=== PATIENT | male | born 1945 | race Caucasian/White ===

== ENCOUNTER → 2016-07-22 | Outpatient (CLI) | payer OTHER ==
[~2016-07-22] MED LIST: ACET-1256 PO; LISI40TA PO; LXT PO
--- NOTE | 2016-07-22 13:32 | DIAGNOSTIC IMAGING REPORT ---
LUMBAR SPINE 5 VIEWS HISTORY: Low back pain. COMPARISON: None. FINDINGS: There is no fracture. No subluxation. Moderate to severe disc space narrowing at L5-S1. Remaining disc spaces are preserved. Small endplate osteophytes seen throughout the majority of the lumbar spine. The sacrum is intact. Levoscoliosis of the lumbar spine may be positional. Mild facet degenerative changes within the lower lumbar spine. IMPRESSION: No fracture or subluxation within the lumbar spine. Moderate to severe disc space narrowing at L5-S1. Electronically signed by: Yair Mendez M.D. 07/22/2016 1:31 PM Dictated Date/Time: 07/22/2016 1:28 PM
== END | disposition home or self-care (01) ==
LOC: C.RAD 12:41
PROVIDERS: ATTEND Family Medicine
DX: M48.07 Spinal stenosis, lumbosacral region (principal)

== ENCOUNTER 2016-10-02 12:52 | Emergency (ER) | payer OTHER ==
[~2016-10-02] VITALS: Ht 182.9 cm; Wt 91.9 kg
[2016-10-02 12:57] VITALS: TEMP 36.7; Ht 182.9 cm; Wt 91.9 kg
[2016-10-02] MEDS ORDERED: LISI40TA PO (14:18)
[2016-10-02] MEDS ORDERED: ACET-1256 PO (14:36)
[2016-10-02] MEDS ORDERED: LXT PO (14:36)
[2016-10-02] MEDS ORDERED: MoRPHine SULFATE 4 MG/ML 1 ML CARP\\VIAL IV STA (14:44)
--- NOTE | 2016-10-02 14:46 | EMERGENCY ROOM VISIT NOTE ---
History Report prepared by Leonard: Linus Goncalves Under the Supervision of: Dr. Nina Roberts D.O. First contact with patient: 14:20 Chief Complaint: ABDOMINAL PAIN Stated Complaint: SEVERE RIGHT SIDE PAIN;BACK PAIN;HEAD PAIN Nursing Triage Summary: Pt presents with right sided abd pain x 2 mos. Constipation. Last BM was Mon morning. Denies n/v. History of Present Illness The patient is a 70 year old male who presents to the Emergency Room with complaints of worsening right-sided abdominal pain that started 2 weeks ago. The patient has not gotten out of bed much the last week or so due to his pain. The patient's family states that the patient had similar pain earlier this year , and was seen here for an evaluation of his gallbladder. The patient says the pain is intermittent, and does not occur everyday. Today, he says the pain is much worse. He states that the only thing that worsens the pain is movement. Nothing makes the pain better. He also notes that his abdomen feels full. Per the patient's family, the patient has had constipation issues for the past 2 weeks, and the onset of constipation occurred around the same time as the onset of the abdominal pain. The patient has to strain to have a bowel movement, and he has not had a bowel movement for 3 days. He has not talked to his primary care physician about his current symptoms. The patient denies any recent changes in his medications or diet. He also denies any fevers, recent illness, hematochezia, urinary symptoms, or leg swelling. The patient takes Lisinopril for hypertension. The patient's family notes that the patient has had chronic back pain, but injured it again in November. The patient has had back pain intermittently since then, but the pain is worsening every time it comes back. He has only had an x-ray of his back. The patient smokes cigarettes and drinks alcohol daily. His last colonoscopy was 6 years ago. The x-ray of the patient's back showed moderate to severe disk space narrowing at L5-S1. He had a HIDA scan in February of last year which was normal, and he had an ultrasound in February of last year which showed a small cyst and mild fatty liver. Source of History: patient, family Onset: 2 weeks ago Position: abdomen (right-sided) Symptom Intensity: has not gotten out of bed much the past week Timing: worsening Modifying Factors (Worsening): movement Associated Symptoms: No fevers, No hematochezia, No urinary symptoms Note: Associated symptoms: Constipation. Abdomen feels full. Denies recent illness, leg swelling. Review of Systems See HPI for pertinent positives & negatives. A total of 10 systems reviewed and were otherwise negative. Past Medical & Surgical Medical Problems: (1) Back pain (2) HTN (hypertension) Family History FHx: cancer Heart disease Hypertension Social History Smoking Status: Current Every Day Smoker Alcohol Use: occasionally Marital Status: Housing Status: lives with family Current/Historical Medications Scheduled Lisinopril (Zestril), 40 MG PO DAILY Scheduled PRN Acetaminophen (Tylenol), 500 MG PO UD PRN for Pain Laxative (Laxative), 1 DOSE PO UD PRN for Constipation Allergies Coded Allergies: No Known Allergies (Unverified , 10/02/16) Physical Exam Vital Signs Date Time Temp Pulse Resp B/P Pulse Ox O2 Delivery O2 Flow Rate FiO2 10/02/16 18:00 69 17 137/67 94 Room Air 10/02/16 15:58 70 126/73 98 Room Air 10/02/16 15:35 67 16 126/73 96 Room Air 10/02/16 12:57 36.7 70 16 101/59 97 Room Air Physical Exam GENERAL: alert, well appearing, well nourished, no distress, non-toxic EYE EXAM: normal conjunctiva, PERRL and EOM's grossly intact OROPHARYNX: no exudate, no erythema, lips, buccal mucosa, and tongue normal and mucous membranes are mildly dry NECK: supple, no nuchal rigidity, no adenopathy, non-tender LUNGS: Lung sounds diminished, no wheezing, no rhonchi, no rales. HEART: no murmurs, S1 normal and S2 normal ABDOMEN: Mild tenderness in mid-lateral abdomen, no pulsatile mass, no rebound or guarding. Mild hepatomegaly. Dull to percussion. BACK: Back is symmetrical on inspection and there is no deformity, no midline tenderness, no CVA tenderness. SKIN: no rashes and no bruising UPPER EXTREMITIES: upper extremities are grossly normal. LOWER EXTREMITIES: No pitting edema. NEURO EXAM: Normal sensorium, cranial nerves II-XII grossly intact, normal speech, no gross weakness of arms, no gross weakness of legs. No drift. Finger to nose intact. Gross sensation intact. Medical Decision & Procedures ER Provider Diagnostic Interpretation: CT:Per my review, radiologist interpretation. ABDOMEN AND PELVIS CT WITHOUT CONTRAST CT DOSE: 1047.94 mGycm HISTORY: Right-sided abdominal pain. TECHNIQUE: Multiaxial CT images of the abdomen and pelvis were performed without contrast. COMPARISON STUDY: None. FINDINGS: The lung bases are clear. There is a 13 mm hypodense lesion within the left hepatic lobe. This is incompletely characterize on this noncontrast study. The unenhanced gallbladder, pancreas, and spleen are unremarkable. There are few subcentimeter adrenal gland nodules. Mild bilateral perinephric edema is likely chronic. No hydronephrosis. No renal stones. No retroperitoneal lymphadenopathy. Bladder is distended and there is mild wall thickening. Prostate gland is normal in size. No evidence for bowel obstruction. A few colonic diverticula. There is extensive inflammatory change adjacent to the cecum. A portion of the tip the appendix is identified and is distended up to 1.3 cm. There are few scattered appendicoliths adjacent to the cecum. There is a 4.4 cm gas and fluid collection obscuring the majority of the appendix. Therefore, these findings are consistent with perforated acute appendicitis with associated abscess formation. IMPRESSION: 1. Above findings consistent with perforated acute appendicitis with a 4.4 cm periappendiceal abscess. There are few scattered appendicoliths within and surrounding the abscess collection. 2. Distended bladder with mild wall thickening. Electronically signed by: Yair Mendez M.D. 10/02/2016 4:14 PM Dictated Date/Time: 10/02/2016 4:00 PM Laboratory Results 10/02/16 14:55 Red Blood Count 4.65, Mean Corpuscular Volume 88.0, Mean Corpuscular Hemoglobin 29.2, Mean Corpuscular Hemoglobin Concent 33.3, Mean Platelet Volume 9.7, Neutrophils (%) (Auto) 74.5, Lymphocytes (%) (Auto) 12.4, Monocytes (%) (Auto) 11.1, Eosinophils (%) (Auto) 1.2, Basophils (%) (Auto) 0.3, Neutrophils # (Auto ) 8.39, Lymphocytes # (Auto) 1.39, Monocytes # (Auto) 1.25, Eosinophils # (Auto ) 0.13, Basophils # (Auto) 0.03 10/02/16 14:55 Test 10/02/16 14:55 10/02/16 15:10 10/02/16 15:50 White Blood Count 11.25 K/uL (4.8-10.8) Red Blood Count 4.65 M/uL (4.7-6.1) Hemoglobin 13.6 g/dL (14.0-18.0) Hematocrit 40.9 % (42-52) Mean Corpuscular Volume 88.0 fL (80-100) Mean Corpuscular Hemoglobin 29.2 pg (25-34) Mean Corpuscular Hemoglobin Concent 33.3 g/dl (32-36) Platelet Count 370 K/uL (130-400) Mean Platelet Volume 9.7 fL (7.4-10.4) Neutrophils (%) (Auto) 74.5 % Lymphocytes (%) (Auto) 12.4 % Monocytes (%) (Auto) 11.1 % Eosinophils (%) (Auto) 1.2 % Basophils (%) (Auto) 0.3 % Neutrophils # (Auto) 8.39 K/uL (1.4-6.5) Lymphocytes # (Auto) 1.39 K/uL (1.2-3.4) Monocytes # (Auto) 1.25 K/uL (0.11-0.59) Eosinophils # (Auto) 0.13 K/uL (0-0.5) Basophils # (Auto) 0.03 K/uL (0-0.2) RDW Standard Deviation 42.6 fL (36.4-46.3) RDW Coefficient of Variation 13.3 % (11.5-14.5) Immature Granulocyte % (Auto) 0.5 % Immature Granulocyte # (Auto) 0.06 K/uL (0.00-0.02) Prothrombin Time 10.6 SECONDS (9.0-12.0) Prothromb Time International Ratio 1.0 (0.9-1.1) Anion Gap 6.0 mmol/L (3-11) Est Creatinine Clear Calc Drug Dose 95.4 ml/min Estimated GFR () 105.3 Estimated GFR (Non- 90.8 BUN/Creatinine Ratio 32.1 (10-20) Calcium Level 9.1 mg/dl (8.5-10.1) Total Bilirubin 0.6 mg/dl (0.2-1) Aspartate Amino Transf (AST/SGOT) 43 U/L (15-37) Alanine Aminotransferase (ALT/SGPT) 83 U/L (12-78) Alkaline Phosphatase 131 U/L (45-117) Total Protein 6.9 gm/dl (6.4-8.2) Albumin 2.6 gm/dl (3.4-5.0) Globulin 4.3 gm/dl (2.5-4.0) Albumin/Globulin Ratio 0.6 (0.9-2) Lipase 136 U/L (73-393) Lactic Acid Level 1.4 mmol/L (0.4-2.0) Urine Color DK YELLOW Urine Appearance CLEAR (CLEAR) Urine pH 5.5 (4.5-7.5) Urine Specific [place] 1.029 (1.000-1.030) Urine Protein TRACE (NEG) Urine Glucose (UA) NEG (NEG) Urine Ketones NEG (NEG) Urine Occult Blood NEG (NEG) Urine Nitrite POS (NEG) Urine Bilirubin NEG (NEG) Urine Urobilinogen NEG (NEG) Urine Leukocyte Esterase TRACE (NEG) Urine WBC (Auto) 5-10 /hpf (0-5) Urine RBC (Auto) 5-10 /hpf (0-4) Urine Hyaline Casts (Auto) 10-30 /lpf (0-5) Urine Epithelial Cells (Auto) >30 /lpf (0-5) Urine Bacteria (Auto) NEG (NEG) Urine Renal Epithelial Cells 0-5 /lpf (0-5) Urine Pathogenic Casts 0-3 GRANULAR CASTS /lpf (0) Laboratory results per my review. Medications Administered Medications (Trade) Dose Ordered Sig/John Route Start Time Stop Time Status Last Admin Dose Admin Morphine Sulfate (MoRPHine SULFATE INJ) 4 mg NOW STAT IV 10/02/16 14:44 10/02/16 14:46 DC 10/02/16 15:55 4 MG Piperacillin Sod/ Tazobactam Sod (Zosyn Iv) 3.375 gm NOW STAT IV 10/02/16 18:03 10/02/16 18:05 DC 10/02/16 18:56 3.375 GM ECG Indication: abdominal pain Rate (beats per minute): 68 Rhythm: normal sinus Findings: PVC, no acute ischemic change, other (normal axis, normal intervals) ED Course 1431: The patient was evaluated in room C12B. A complete history and physical exam was performed. 1440: An x-ray of the patient's back showed moderate to severe disk space narrowing at L5-S1. He had a HIDA scan in February of last year which was normal, and he had an ultrasound in February of last year which showed a small cyst and mild fatty liver. 1444: Ordered Morphine Sulfate Inj 4 mg IV. 1639: I reevaluated the patient and he is resting comfortably. The patient verbally expressed understanding and agreement of the treatment plan. The patient will be evaluated for further treatment. 180: I discussed the patient with Dr. Pavel MOFFETT surgery - after seeing the patient, he says to transfer the patient. The patient is agreeable with the plan. 1803: Ordered Zosyn IV 3.375 gm IV. 185: I discussed the patient with Dr. Almazan - [facility] acute care surgery - he says that the patient can go to a med-surg bed at [facility]. He will accept the patient in transfer. 2100: Ordered Remove Nicoderm Patch 1 ea N/A. 0900: Ordered Nicoderm Cq 21MG Patch 1 patch TD. Medical Decision Differential diagnoses includes but is not limited to gastritis, peptic ulcer disease, GERD, gallbladder disease, pancreatitis, small bowel obstruction, acute coronary syndrome, pericarditis, ischemic bowel, irritable bowel disease, irritable bowel syndrome, appendicitis, diverticulitis, malignancy, hernia, urinary tract infection, torsion, perforation, trauma, infectious. Patient presented with abdominal pain after multiple weeks, and found to have perforated appendicitis with abscess. Seen and evaluated in the emergency department by general surgery transfer recommended for possible interventional radiology procedure. Patient aware of all findings, and agreeable with plan. Patient be transferred to [facility], to Dr. Almazan. No evidence of bacteremia/sepsis, no other concurrent GI pathology noted. Patient cover with Zosyn for intra-abdominal abscess, and should also cover for UTI noted. Culture was sent of urine as a precaution. Consults Time Called: 1730 Consulting Physician: Dr. Pavel MOFFETT surgery Returned Call: 180 (in person) I discussed the patient with Dr. Pavel MOFFETT surgery - after seeing the patient , he says to transfer the patient. Additional Consults: Time Called: 1840 [facility] Returned Call: [phone] Additional Comments: I discussed the [facility] - he says that the patient can go to a med-surg bed at [facility]. He will accept the patient in transfer. Impression Primary Impression: Perforated appendicitis Additional Impressions: Right sided abdominal pain UTI (urinary tract infection) Scribe Attestation The scribe's documentation has been prepared under my direction and personally reviewed by me in its entirety. I confirm that the note above accurately reflects all work, treatment, procedures, and medical decision making performed by me. Departure Information Dispostion Transfer Acute Care Facility (to [facility]) Referrals Adriana Padilla MD (PCP) Patient Instructions My [facility] Problem Qualifiers Additional Impressions: UTI (urinary tract infection) Urinary tract infection type: acute cystitis Hematuria presence: without hematuria Qualified Codes: N30.00 - Acute cystitis without hematuria
[2016-10-02 15:27] LABS: BASO % 0.3 %; BASO ABS # 0.03 K/uL (0-0.2); COMPLETE YES; EOS % 1.2 %; HEMATOCRIT 40.9 % (42-52); IG% 0.5 %; LYMPH % 12.4 %; LYMPH ABS # 1.39 K/uL (1.2-3.4); MEAN CORPUSCULAR HEMOGLOBIN 29.2 pg (25-34); MEAN CORPUSCULAR HGB CONC 33.3 g/dl (32-36); MEAN PLATELET VOLUME 9.7 fL (7.4-10.4); MONO % 11.1 %; NEUT % 74.5 %; PLATELET COUNT 370 K/uL (130-400); RED BLOOD COUNT 4.65 M/uL (4.7-6.1); WHITE BLOOD COUNT 11.25 K/uL (4.8-10.8)
[2016-10-02 15:51] LABS: BUN/CREATININE RATIO 32.1 (10-20); CALCIUM 9.1 mg/dl (8.5-10.1); CREATININE 0.78 mg/dl (0.60-1.40)
[2016-10-02 15:54] LABS: ALB/GLOB RATIO 0.6 (0.9-2)
[2016-10-02 16:14] LABS: URINE APPEARANCE CLEAR (CLEAR); URINE COLOR DK YELLOW; URINE EPITHELIAL CELL AUTO >30 /lpf (0-5); URINE NITRITE POS (NEG); URINE PH 5.5 (4.5-7.5); URINE SPECIFIC GRAVITY 1.029 (1.000-1.030); UROBILINOGEN NEG (NEG); ZZUR CULT IF INDIC CLEAN CATCH NO
--- NOTE | 2016-10-02 16:15 | DIAGNOSTIC IMAGING REPORT ---
ABDOMEN AND PELVIS CT WITHOUT CONTRAST CT DOSE: 1047.94 mGycm HISTORY: Right-sided abdominal pain. TECHNIQUE: Multiaxial CT images of the abdomen and pelvis were performed without contrast. COMPARISON STUDY: None. FINDINGS: The lung bases are clear. There is a 13 mm hypodense lesion within the left hepatic lobe. This is incompletely characterize on this noncontrast study. The unenhanced gallbladder, pancreas, and spleen are unremarkable. There are few subcentimeter adrenal gland nodules. Mild bilateral perinephric edema is likely chronic. No hydronephrosis. No renal stones. No retroperitoneal lymphadenopathy. Bladder is distended and there is mild wall thickening. Prostate gland is normal in size. No evidence for bowel obstruction. A few colonic diverticula. There is extensive inflammatory change adjacent to the cecum. A portion of the tip the appendix is identified and is distended up to 1.3 cm. There are few scattered appendicoliths adjacent to the cecum. There is a 4.4 cm gas and fluid collection obscuring the majority of the appendix. Therefore, these findings are consistent with perforated acute appendicitis with associated abscess formation. IMPRESSION: 1. Above findings consistent with perforated acute appendicitis with a 4.4 cm periappendiceal abscess. There are few scattered appendicoliths within and surrounding the abscess collection. 2. Distended bladder with mild wall thickening. Electronically signed by: Yair Mendez M.D. 10/02/2016 4:14 PM Dictated Date/Time: 10/02/2016 4:00 PM
[2016-10-02 16:20] LABS: MANUAL MICROSCOPIC REQUIRED? NO; REVIEW REQ? YES
[2016-10-02 16:21] LABS: URINE BILIRUBIN NEG (NEG)
[2016-10-02 16:30] LABS: URINE PATH CASTS 0-3 GRANULAR CASTS /lpf (0)
[2016-10-02] MEDS ORDERED: PIPERACILLIN/TAZOBACTAM 3.375 GM/100ML D5W IV STA (18:03)
[2016-10-02 18:05] LABS: PROTHROMBIN TIME (PATIENT) 10.6 SECONDS (9.0-12.0)
[2016-10-02] MEDS ORDERED: SODIUM CHLORIDE 0.9% 1000ML 1,000 ML IV STA (19:12)
[2016-10-02] MEDS ORDERED: NICOTINE 21 MG/24 HR TDSY TD STA (19:58)
--- NOTE | 2016-10-02 20:11 | History and Physical ---
History & Physical Date & Time of Service: Oct 02, 2016 at 20:01 Chief Complaint: Severe Right Side Pain;Back Pain;Head Pain Primary Care Physician: Adriana Padilla MD History of Present Illness Source: patient, family The patient is a 70 year old male who presents to the Emergency Room with complaints of worsening right-sided abdominal pain that started 2 weeks ago. The patient has not gotten out of bed much the last week or so due to his pain. The patient's family states that the patient had similar pain earlier this year , and was seen here for an evaluation of his gallbladder. The patient says the pain is intermittent, and does not occur everyday. Today, he says the pain is much worse. He states that the only thing that worsens the pain is movement. Nothing makes the pain better. He also notes that his abdomen feels full. Per the patient's family, the patient has had constipation issues for the past 2 weeks, and the onset of constipation occurred around the same time as the onset of the abdominal pain. The patient has to strain to have a bowel movement, and he has not had a bowel movement for 3 days. He has not talked to his primary care physician about his current symptoms. The patient denies any recent changes in his medications or diet. He also denies any fevers, recent illness, hematochezia, urinary symptoms, or leg swelling. The patient takes Lisinopril for hypertension. The patient's family notes that the patient has had chronic back pain, but injured it again in November. The patient has had back pain intermittently since then, but the pain is worsening every time it comes back. He has only had an x-ray of his back. The patient smokes cigarettes and drinks alcohol daily. His last colonoscopy was 6 years ago. The x-ray of the patient's back showed moderate to severe disk space narrowing at L5-S1. He had a HIDA scan in February of last year which was normal, and he had an ultrasound in February of last year which showed a small cyst and mild fatty liver. I saw pt at ER, pt is still have RLQ pain, pt denies nausea, no vomiting, no fever, no diarrhea, I agrr with ER attending note. Past Medical/Surgical History Medical Problems: (1) Back pain Status: Chronic (2) HTN (hypertension) Status: Chronic Family History FHx: cancer Heart disease Hypertension Social History Smoking Status: Current Every Day Smoker Smokeless Tobacco Use: No Alcohol Use: none Drug Use: none Marital Status: Allergies Coded Allergies: No Known Allergies (Unverified , 10/02/16) Home Medications Scheduled Lisinopril (Zestril), 40 MG PO DAILY Scheduled PRN Acetaminophen (Tylenol), 500 MG PO UD PRN for Pain Laxative (Laxative), 1 DOSE PO UD PRN for Constipation Review of Systems Constitutional: No chills, No fatigue, No fever, No problem reported, No sweats , No weakness, No weight loss Eyes: No diplopia, No discharge, No eye pain, No problem reported, No redness, No worsening of vision ENT: No dental problems, No hearing loss, No nasal symptoms, No problem reported, No sore throat, No tinnitus, No trouble swallowing, No unusual epistaxis Respiratory: No cough, No dyspnea at rest, No dyspnea on exertion, No hemoptysis, No problem reported, No shortness of breath, No sputum, No wheezing Cardiovascular: + problem reported (HTN), No PND, No chest pain, No claudication, No edema, No orthopnea, No palpitations Abdomen: + pain (RLQ pain) Neurologic: No balance problems, No memory loss, No numbness/tingling, No paralysis, No problem reported, No vertigo, No weakness Psychiatric: No anhedonism, No anxiety, No depression symptoms, No insomnia, No problem reported, No substance abuse Endocrine: No excessive thirst, No excessive urination, No fatigue, No problem reported Hematologic / Lymphatic: No abnormal bleeding/bruising, No clotting problems, No night sweats, No problem reported, No swollen lymph nodes Physical Exam Vital Signs Date Time Temp Pulse Resp B/P Pulse Ox O2 Delivery O2 Flow Rate FiO2 10/02/16 18:00 69 17 137/67 94 Room Air 10/02/16 15:58 70 126/73 98 Room Air 10/02/16 15:35 67 16 126/73 96 Room Air 10/02/16 12:57 36.7 70 16 101/59 97 Room Air General Appearance: WD/WN, + mild distress Head: normocephalic Eyes: normal inspection ENT: normal ENT inspection Neck: supple, no JVD Respiratory/Chest: chest non-tender, lungs clear Cardiovascular: regular rate, rhythm, no edema, no gallop, no JVD Abdomen/GI: soft, no organomegaly, no pulsatile mass (no rebound pain), + tenderness (RLQ) Extremities/Musculoskelatal: normal inspection, no calf tenderness, normal capillary refill Neurologic/Psych: no motor/sensory deficits, alert, normal mood/affect Skin: normal color, warm/dry Diagnostics Laboratory Results Results Past 24 Hours Test 10/02/16 14:55 10/02/16 15:10 10/02/16 15:50 Range/Units White Blood Count 11.25 4.8-10.8 K/uL Red Blood Count 4.65 4.7-6.1 M/uL Hemoglobin 13.6 14.0-18.0 g/dL Hematocrit 40.9 42-52 % Mean Corpuscular Volume 88.0 80-100 fL Mean Corpuscular Hemoglobin 29.2 25-34 pg Mean Corpuscular Hemoglobin Concent 33.3 32-36 g/dl Platelet Count 370 130-400 K/uL Mean Platelet Volume 9.7 7.4-10.4 fL Neutrophils (%) (Auto) 74.5 % Lymphocytes (%) (Auto) 12.4 % Monocytes (%) (Auto) 11.1 % Eosinophils (%) (Auto) 1.2 % Basophils (%) (Auto) 0.3 % Neutrophils # (Auto) 8.39 1.4-6.5 K/uL Lymphocytes # (Auto) 1.39 1.2-3.4 K/uL Monocytes # (Auto) 1.25 0.11-0.59 K/uL Eosinophils # (Auto) 0.13 0-0.5 K/uL Basophils # (Auto) 0.03 0-0.2 K/uL RDW Standard Deviation 42.6 36.4-46.3 fL RDW Coefficient of Variation 13.3 11.5-14.5 % Immature Granulocyte % (Auto) 0.5 % Immature Granulocyte # (Auto) 0.06 0.00-0.02 K/uL Prothrombin Time 10.6 9.0-12.0 SECONDS Prothromb Time International Ratio 1.0 0.9-1.1 Sodium Level 137 136-145 mmol/L Potassium Level 4.0 3.5-5.1 mmol/L Chloride Level 103 98-107 mmol/L Carbon Dioxide Level 28 21-32 mmol/L Anion Gap 6.0 3-11 mmol/L Blood Urea Nitrogen 25 7-18 mg/dl Creatinine 0.78 0.60-1.40 mg/dl Est Creatinine Clear Calc Drug Dose 95.4 ml/min Estimated GFR () 105.3 Estimated GFR (Non- 90.8 BUN/Creatinine Ratio 32.1 10-20 Random Glucose 97 70-99 mg/dl Calcium Level 9.1 8.5-10.1 mg/dl Total Bilirubin 0.6 0.2-1 mg/dl Aspartate Amino Transf (AST/SGOT) 43 15-37 U/L Alanine Aminotransferase (ALT/SGPT) 83 12-78 U/L Alkaline Phosphatase 131 45-117 U/L Total Protein 6.9 6.4-8.2 gm/dl Albumin 2.6 3.4-5.0 gm/dl Globulin 4.3 2.5-4.0 gm/dl Albumin/Globulin Ratio 0.6 0.9-2 Lipase 136 73-393 U/L Lactic Acid Level 1.4 0.4-2.0 mmol/L Urine Color DK YELLOW Urine Appearance CLEAR CLEAR Urine pH 5.5 4.5-7.5 Urine Specific [place] 1.029 1.000-1.030 Urine Protein TRACE NEG Urine Glucose (UA) NEG NEG Urine Ketones NEG NEG Urine Occult Blood NEG NEG Urine Nitrite POS NEG Urine Bilirubin NEG NEG Urine Urobilinogen NEG NEG Urine Leukocyte Esterase TRACE NEG Urine WBC (Auto) 5-10 0-5 /hpf Urine RBC (Auto) 5-10 0-4 /hpf Urine Hyaline Casts (Auto) 10-30 0-5 /lpf Urine Epithelial Cells (Auto) >30 0-5 /lpf Urine Bacteria (Auto) NEG NEG Urine Renal Epithelial Cells 0-5 0-5 /lpf Urine Pathogenic Casts 0-3 GRANULAR CASTS 0 /lpf Microbiology Results 10/02/16 Urine Culture, Received Pending Diagnostic Radiology ABDOMEN AND PELVIS CT WITHOUT CONTRAST CT DOSE: 1047.94 mGycm HISTORY: Right-sided abdominal pain. TECHNIQUE: Multiaxial CT images of the abdomen and pelvis were performed without contrast. COMPARISON STUDY: None. FINDINGS: The lung bases are clear. There is a 13 mm hypodense lesion within the left hepatic lobe. This is incompletely characterize on this noncontrast study. The unenhanced gallbladder, pancreas, and spleen are unremarkable. There are few subcentimeter adrenal gland nodules. Mild bilateral perinephric edema is likely chronic. No hydronephrosis. No renal stones. No retroperitoneal lymphadenopathy. Bladder is distended and there is mild wall thickening. Prostate gland is normal in size. No evidence for bowel obstruction. A few colonic diverticula. There is extensive inflammatory change adjacent to the cecum. A portion of the tip the appendix is identified and is distended up to 1.3 cm. There are few scattered appendicoliths adjacent to the cecum. There is a 4.4 cm gas and fluid collection obscuring the majority of the appendix. Therefore, these findings are consistent with perforated acute appendicitis with associated abscess formation. IMPRESSION: 1. Above findings consistent with perforated acute appendicitis with a 4.4 cm periappendiceal abscess. There are few scattered appendicoliths within and surrounding the abscess collection. 2. Distended bladder with mild wall thickening. Impression Assessment and Plan IMP perforated appendicitis with abscess I recommend that intervention radiologist to do percutanous drainage abscess under CT Guard. pt needs to transfer higher level care, no intervention radiologist available at this hospital now, D/W benefits, risks and alternatives of transfer, pt understood, he agrees with the plan, D/W ER attending,
[2016-10-02 22:14] VITALS: BP 132/67; PULSE 82; O2SAT 98
[2016-10-03] MEDS ORDERED: NICOTINE 21 MG/24 HR TDSY TD SCH (09:00)
== END 2016-10-02 22:30 | disposition short-term general hospital (02) ==
LOC: C.EDB 12:54 → C.EDC 22:30
DX: K35.3 Acute appendicitis with localized peritonitis (principal); R10.9 Unspecified abdominal pain; N30.00 Acute cystitis without hematuria; I10 Essential (primary) hypertension; Z80.9 Family history of malignant neoplasm, unspecified; Z82.49 Family history of ischemic heart disease and other diseases of the circulatory system; F17.210 Nicotine dependence, cigarettes, uncomplicated; Z79.899 Other long term (current) drug therapy

== ENCOUNTER → 2017-08-18 | Outpatient (CLI) | payer OTHER ==
[2017-08-18 12:33] LABS: BASO % 0.2 %; BASO ABS # 0.01 K/uL (0-0.2); EOS % 1.7 %; HEMATOCRIT 45.1 % (42-52); HEMOGLOBIN 15.4 g/dL (14.0-18.0); IG# 0.01 K/uL (0.00-0.02); LYMPH % 33.2 %; LYMPH ABS # 1.93 K/uL (1.2-3.4); MEAN CELL VOLUME 88.6 fL (80-100); MEAN CORPUSCULAR HEMOGLOBIN 30.3 pg (25-34); MEAN CORPUSCULAR HGB CONC 34.1 g/dl (32-36); MEAN PLATELET VOLUME 10.3 fL (7.4-10.4); MONO ABS # 0.41 K/uL (0.11-0.59); NEUT % 57.7 %; NEUT ABS # 3.36 K/uL (1.4-6.5); PLATELET COUNT 277 K/uL (130-400); RED CELL DISTRIBUTION WIDTH CV 13.2 % (11.5-14.5); WHITE BLOOD COUNT 5.82 K/uL (4.8-10.8)
[2017-08-18 17:45] LABS: BLOOD UREA NITROGEN 27 mg/dl (7-18); CALCIUM 9.2 mg/dl (8.5-10.1); CARBON DIOXIDE 28 mmol/L (21-32); CHOLESTEROL 196 mg/dl (0-200); CREATININE 1.13 mg/dl (0.60-1.40); GLUCOSE 92 mg/dl (70-99); POTASSIUM 4.8 mmol/L (3.5-5.1); SODIUM 137 mmol/L (136-145)
[2017-08-18 17:48] LABS: LDL CHOLESTEROL CALCULATED 141 mg/dl
== END | disposition home or self-care (01) ==
LOC: C.LABPBG 11:14
PROVIDERS: ATTEND Family Medicine
DX: Z00.00 Encounter for general adult medical examination without abnormal findings (principal); I10 Essential (primary) hypertension; Z13.220 Encounter for screening for lipoid disorders

== ENCOUNTER → 2018-01-15 | Outpatient (CLI) | payer OTHER | END | disposition home or self-care (01) | LOC: C.LABPBG 10:24 | PROVIDERS: ATTEND Family Medicine | DX: R39.9 Unspecified symptoms and signs involving the genitourinary system (principal) ==

== ENCOUNTER → 2018-01-26 | Outpatient (CLI) | payer OTHER ==
[2018-01-26 16:57] LABS: HEMATOCRIT 46.5 % (42-52); HEMOGLOBIN 15.8 g/dL (14.0-18.0); MEAN CELL VOLUME 89.3 fL (80-100); MEAN CORPUSCULAR HEMOGLOBIN 30.3 pg (25-34); MEAN PLATELET VOLUME 11.2 fL (7.4-10.4); PLATELET COUNT 266 K/uL (130-400); RED CELL DISTRIBUTION WIDTH CV 13.2 % (11.5-14.5); RED CELL DISTRIBUTION WIDTH SD 43.1 fL (36.4-46.3); WHITE BLOOD COUNT 5.91 K/uL (4.8-10.8)
[2018-01-26 17:17] LABS: ALBUMIN 3.8 gm/dl (3.4-5.0); ALKALINE PHOSPHATASE 71 U/L (45-117); ALT/SGPT 20 U/L (12-78); AST/SGOT 11 U/L (15-37); BLOOD UREA NITROGEN 22 mg/dl (7-18); CALCIUM 9.1 mg/dl (8.5-10.1); CARBON DIOXIDE 28 mmol/L (21-32); CHOLESTEROL 222 mg/dl (0-200); CREATININE 0.96 mg/dl (0.60-1.40); GLUCOSE 88 mg/dl (70-99); LDL CHOLESTEROL CALCULATED 161 mg/dl; POTASSIUM 4.7 mmol/L (3.5-5.1); SODIUM 138 mmol/L (136-145); TOTAL PROTEIN 7.4 gm/dl (6.4-8.2)
== END | disposition home or self-care (01) ==
LOC: C.LABPBG 14:18
PROVIDERS: ATTEND Family Medicine
DX: Z13.220 Encounter for screening for lipoid disorders (principal); Z11.59 Encounter for screening for other viral diseases; K76.0 Fatty (change of) liver, not elsewhere classified; I10 Essential (primary) hypertension